=== PATIENT | male | born 1990 | race Caucasian/White ===

== ENCOUNTER 2020-02-15 15:53 | Emergency (ER) | payer OTHER ==
[~2020-02-15] VITALS: Ht 175.3 cm; Wt 156.7 kg
[2020-02-15 15:57] VITALS: BP 172/101
--- NOTE | 2020-02-15 18:08 | NUR ---
C/O RIGHT KNEE PAIN X2 DAYS, STATES HE MOVES HEAVY THINGS AT WORK.
== END 2020-02-15 18:45 | disposition home or self-care (01) ==
LOC: ED 18:00
DX: M25.561 Pain in right knee (principal)
CPT/HCPCS: 99283